=== PATIENT | female | born 1980 | race Caucasian/White ===

== ENCOUNTER 2024-05-16 08:03 | Outpatient (CLI) | payer BC | END 2024-05-16 08:04 | disposition home or self-care (01) | LOC: CSHWCC 08:03 | PROVIDERS: ATTEND Preventive Medicine Undersea and Hyperbaric Medicine | DX: S81.802D Unspecified open wound, left lower leg, subsequent encounter (principal); L03.116 Cellulitis of left lower limb | CPT/HCPCS: 11042; 99213; G0463 ==

== ENCOUNTER 2024-05-20 15:46 | Outpatient (CLI) | payer BC | END 2024-05-20 15:47 | disposition home or self-care (01) | LOC: CSHWCC 15:46 | PROVIDERS: ATTEND Preventive Medicine Undersea and Hyperbaric Medicine | DX: S81.802D Unspecified open wound, left lower leg, subsequent encounter (principal); L03.116 Cellulitis of left lower limb | CPT/HCPCS: 99213; G0463 ==

== ENCOUNTER 2024-06-04 13:29 | Outpatient (CLI) | payer BC | END 2024-06-04 13:30 | disposition home or self-care (01) | LOC: CSHWCC 13:29 | PROVIDERS: ATTEND Nurse Practitioner Family | DX: L97.222 Non-pressure chronic ulcer of left calf with fat layer exposed (principal) | CPT/HCPCS: 11042 ==

== ENCOUNTER 2024-06-11 12:58 | Outpatient (CLI) | payer BC | END 2024-06-11 12:59 | disposition home or self-care (01) | LOC: CSHWCC 12:58 | PROVIDERS: ATTEND Nurse Practitioner Family | DX: L97.222 Non-pressure chronic ulcer of left calf with fat layer exposed (principal) | CPT/HCPCS: 11042 ==

== ENCOUNTER 2024-06-24 13:04 | Outpatient (CLI) | payer BC | END 2024-06-24 13:05 | disposition home or self-care (01) | LOC: CSHWCC 13:04 | PROVIDERS: ATTEND Nurse Practitioner Family | DX: L97.222 Non-pressure chronic ulcer of left calf with fat layer exposed (principal) | CPT/HCPCS: 99212; G0463 ==